=== PATIENT | female | born 1995 | race Caucasian/White ===

== ENCOUNTER → 2018-04-21 10:02 | Outpatient (CLI) | payer MEDICAID ==
[2014-03-14 06:18] VITALS: BMI 27.1
[~2018-04-21 10:02] MED LIST: HYDROCODONE-APA1 TAB PO; NORCO 10/325 TA1 TA1 PO; ULTRAM50 MG PO
== END | disposition home or self-care (01) ==
LOC: D.US 10:02
DX: E06.3 Autoimmune thyroiditis (principal)